=== PATIENT | male | born 1930 | race Caucasian/White ===

== ENCOUNTER 2019-05-12 15:31 | Inpatient (IN) | payer MEDICARE, OTHER ==
[2019-05-12 16:14] LABS: Bacteria/HPF None Seen HPF (None Seen); Bilirubin Negative (Negative); Blood, Urine 2+ (Negative); Clarity Clear (Clear); Glucose, Urine (Dipstick) Normal (Negative); Leukocyte Negative Leu/uL (Negative); Nitrite Negative (Negative); Protein, Urine (Dipstick) 50 mg/dL (Neg-Trace); Squamous Epithelial None Seen HPF (0-3); Urobilinogen Normal mg/dL (Less than 2); WBC/HPF 0-3 HPF (0-3)
[2019-05-12 16:23] LABS: #Lymphocytes 0.6 thou/uL (1.20-3.40); #Monocytes 0.9 thou/uL (0.11-0.59); #Neutrophils 10.6 thou/uL (1.40-6.50); %Basophils 0.2 % (0.0-1.0); %Eosinophils 0.1 % (0.0-10.0); %Lymphocytes 5.3 % (21.0-51.0); %Monocytes 7.6 % (0.0-10.0); %Neutrophils 86.9 % (42.0-75.0); Hemoglobin 15.1 g/dL (14.0-18.0); Mean Corpuscular HGB CONC 34.6 g/dL (32.0-36.0); Mean Corpuscular Hemoglobin 31.1 pg (27.0-31.0); Mean Corpuscular Volume 89.8 fL (78.0-98.0); Mean Platelet Volume 7.3 fL (7.4-10.4); Platelet Count 177 thou/uL (130-400); RBC Distribution Width 12.9 % (11.5-14.5); Red Blood Cell (RBC) Count 4.87 mill/uL (4.70-6.10); White Blood Cell (WBC) Count 12.2 thou/uL (4.8-10.8)
--- NOTE | 2019-05-12 16:35 | CT ---
Exam: Head CT without contrast HISTORY: Trauma. Pain. COMPARISON: 11/05/2013 FINDINGS: Hemorrhage: No intraparenchymal hemorrhage or extra-axial hematoma. Brain parenchyma: Cortical martin-white matter differentiation is preserved. No mass effect or midline shift. Basilar cisterns are patent.Chronic small vessel ischemic changes white matter. Age-appropriate atrophy. Ventricular system: Ventricles and sulci are patent and symmetric. Calvarium: Intact. Sinuses and mastoid air cells: Mild mucosal thickening of the paranasal sinuses. Intact mastoid air c ells IMPRESSION: No acute intracranial posttraumatic sequelae.
--- NOTE | 2019-05-12 16:42 | CT ---
CT CERVICAL SPINE NONCONTRAST: DATE: 05/12/2019 HISTORY: cervical trauma. 88-year-old male status post acute cervical trauma from fall. FINDINGS: There are no jumped or perched facets. There is no evidence of acute fracture. The vertebral body hei ghts are maintained. There is no prevertebral soft tissue swelling. There are degenerative disc changes and facet osteoarthrosis. There is an approximately 0.8 x 0.6 x 0.7 cm midline posterior oste olytic lesion at C2, involving base of odontoid process, contiguous with defect of posterior osseous cortical surface. There is soft tissue density material around the odontoid process which is probably degenerative pseudopannus, but alternatively could represent pannus if the patient has history of rheumatoid arthritis. IMPRESSION: 1) Cervical spondylosis. 2) no evidence of acute fracture or acute traumatic subluxation. 3) at C2, there is a nonspecific osteolytic focal lesion at posterior base of odontoid process. This is nonspecific. Possibilities include metastatic focus, myeloma, erosion, versus one of the various benign osteolytic entities.
[2019-05-12 16:49] LABS: ALT (SGPT) 15 U/L (8-55); AST (SGOT) 45 U/L (5-34); Albumin 3.5 g/dL (3.4-4.8); Alkaline Phosphatase 76 U/L (40-110); Anion Gap 11 mmol/L (10-20); BUN (Urea Nitrogen) 23 mg/dL (8.4-25.7); Bilirubin, Total 1.1 mg/dL (0.2-1.2); CK (CPK) 1433 U/L (30-200); Calc. Creatinine Clearance 0 mL/min (70-130); Calcium 8.7 mg/dL (7.8-10.44); Carbon Dioxide 28 mmol/L (23-31); Chloride 101 mmol/L (98-107); Estimated GFR-MDRD 68; Globulin 2.2 g/dL (2.4-3.5); Glucose 116 mg/dL (83-110); Lipase 5 U/L (8-78); Magnesium 1.8 mg/dL (1.6-2.6); Potassium 3.9 mmol/L (3.5-5.1); Protein, Total 5.7 g/dL (5.8-8.1); Sodium 136 mmol/L (136-145)
--- NOTE | 2019-05-12 16:56 | RAD ---
Chest 2 views HISTORY: Altered mental status. Syncope. FINDINGS: Cardiac silhouette and pulmonary vasculature are unremarkable. Mediastinum is midline with aortic calcification. No confluent airspace consolidation, pneumothorax, or pleural fluid. Lungs are slightly hyperinflated. IMPRESSION: Mild pulmonary hyperinflation. Atherosclerosis.
[2019-05-12 17:14] LABS: CKMB 37.7 ng/mL (0-6.6)
[2019-05-12] MEDS ORDERED: hydrALAZINE 20 MG/ML VIAL ONE (17:38)
[2019-05-12] MEDS ORDERED: Lorazepam 2 MG/ML VIAL SLOW IVP SCH (18:30)
[2019-05-12] MEDS ORDERED: Lorazepam 2 MG/ML VIAL ONE (18:35)
[2019-05-12] MEDS ORDERED: Aspirin 325 mg Enteric Coated Tablet PO SCH (19:00)
--- NOTE | 2019-05-12 19:14 | PDOC.EVN ---
Event Note - Event Note Event Note: Patient seen and examined, discussed with Terra Cui. He was found down for unknown duration time. He had some elevated CPK and modestly elevated trop. Head CT negative. Became a little agitated here and had a very small dose of ativan. Initially seemed confused. On my exam he is fairly appropriate. Gets a few things wrong, but able to tell me details about his who last month. Denies EtOH or tobacco. Heart is tachy. Lungs generally clear. EKG repeat was a little concerning for ST depression. Sent to Dr. Ruiz and discussed between he and Terra. Will give Lovenox and beta janay if he can pass a swallow test. Plan MRI, tox screen. Rule out.
[2019-05-12] MEDS ORDERED: Enoxaparin Sodium 100 MG/ML SYRINGE SC SCH (19:15)
[2019-05-12 19:23] LABS: Amphetamine Not Detected (NotDetected); Barbiturates Screen Not Detected (NotDetected); Benzodiazepine Screen Not Detected (NotDetected); Cocaine Metabolite Screen Not Detected (NotDetected); Medtox Control Line Valid? VALID (VALID); Medtox Reader # READER 4; Methadone Not Detected (NotDetected); Methamphetamine Not Detected (NotDetected); Opiate Screen Not Detected (NotDetected); Oxycodone Screen Not Detected (NotDetected); Phencyclidine (PCP) Not Detected (NotDetected); THC/Cannabinoid Screen Not Detected (NotDetected); Tricyclic Screen Not Detected (NotDetected)
[2019-05-12] MEDS ORDERED: Aspirin Chewable 81 MG TAB ONE (19:24)
[2019-05-12] MEDS ORDERED: Metoprolol Tartrate 25 MG TAB PO SCH ×2 (19:30→21:00)
[2019-05-12] MEDS ORDERED: Melatonin 3 MG TAB PO PRN (21:07)
[2019-05-12] MEDS ORDERED: Melatonin 3 MG TAB PO SCH (21:15)
[2019-05-12] MEDS ORDERED: Sodium Chloride 0.45% 1,000 ML IV SCH (21:15)
--- NOTE | 2019-05-12 21:33 | PDOC.HHP ---
Hospitalist HPI - History of Present Illness Unresponsive/AMS History of Present Illness: Patient brought in to the ED after he was found down at home unresponsive. The last time he was seen was 24-48 hours ago when he was helping his neighbor move. He lives alone. Patient continues to be altered therefore history taking is difficult. He is able to recall his address but does not answer appropriately otherwise. Also not able to follow commands. He appears agitated and wanting to get out of the stretcher. I was notified by the ED RN that patient became tachycardic. HR in 130s. He denies any chest pain. Does not appear to be in any discomfort. ED Course: He had a CT head which showed no acute intracranial changes. CT C-Spine: 1) Cervical spondylosis. 2) no evidence of acute fracture or acute traumatic subluxation. 3) at C2, there is a nonspecific osteolytic focal lesion at posterior base of odontoid process. This is nonspecific. Possibilities include metastatic focus, myeloma, erosion, versus one of the various benign osteolytic entities. WCC 12.2, Hgb 15.1, Hct 43.7, platelets 177 Trop 0.110, CKMB 37.7 CK 1433 Na+ 136, K+ 3.9, Bun 23, Creat 1.03, GFR 68. LFTs unremarkable. CXR: mild pulmonary hyperinflation. UA: 10 ketone, 50 of protein, 2+ blood, 4-6 RBC, no bacteria. Given hydralazine for elevated BP (initial 241/189) and started on IVF 150 mL/ hr. Repeat EKG done due to tachycardia. Given concern for ST depression Aspirin 325 mg given. Patient with improved mental status and able to take pill. I discussed case with Dr. Ruiz who felt the elevated trop was unlikely cardiac in nature. Advised lovenox x 1, metoprolol 50 bid with plans to see patient in AM. Echo advised as well. Hospitalist ROS - Review of Systems ROS unobtainable: due to mental status (Denies any pain. Difficult to obtain history.) Hospitalist History - Past Medical History Source: other Cardiac: reports: HTN, Hyperlipidemia - Past Surgical History Past Surgical History: reports: Appendectomy, Cataract Removal - Social History Activity level: independent ambulation - Exam General - other findings: Patient initially agitated, has calmed with ativan 0.25 mg IV given in ED. Eye - other findings: Gaze deviating upward, after ativan able to make eye contact ENT: dry oral mucosa ENT - other findings: unable to assess EOM or visual desai due to confusion Neck: supple Heart: no murmur, no gallops, no rubs Heart - other findings: tachycardia Respiratory: CTAB, no wheezes, no rales, no ronchi, normal chest expansion, no tachypnea Gastrointestinal: soft, non-distended, no guarding, no rigidity Gastrointestinal - other findings: no apparent tenderness Extremities: no cyanosis, no edema Skin: normal turgor Neurological - other findings: Appears disheveled, unable to follow commands, no slurred speech Musculoskeletal: normal tone, normal strength Psychiatric: oriented to person Hospitalist Results - Labs Result Diagrams: 05/12/19 16:09 05/12/19 16:09 Lab results: WBC 12.2 thou/uL (4.8-10.8) H 05/12/19 16:09 Hgb 15.1 g/dL (14.0-18.0) 05/12/19 16:09 Hct 43.7 % (42.0-52.0) 05/12/19 16:09 MCV 89.8 fL (78.0-98.0) 05/12/19 16:09 Plt Count 177 thou/uL (130-400) 05/12/19 16:09 Neutrophils % 86.9 % (42.0-75.0) H 05/12/19 16:09 Sodium 136 mmol/L (136-145) 05/12/19 16:09 Potassium 3.9 mmol/L (3.5-5.1) 05/12/19 16:09 Chloride 101 mmol/L (98-107) 05/12/19 16:09 Carbon Dioxide 28 mmol/L (23-31) 05/12/19 16:09 BUN 23 mg/dL (8.4-25.7) 05/12/19 16:09 Creatinine 1.03 mg/dL (0.7-1.3) 05/12/19 16:09 Glucose 116 mg/dL (83-110) H 05/12/19 16:09 Calcium 8.7 mg/dL (7.8-10.44) 05/12/19 16:09 Total Bilirubin 1.1 mg/dL (0.2-1.2) 05/12/19 16:09 AST 45 U/L (5-34) H 05/12/19 16:09 ALT 15 U/L (8-55) 05/12/19 16:09 Alkaline Phosphatase 76 U/L (40-110) 05/12/19 16:09 Ammonia 17 umol/L (18-72) L 05/12/19 19:31 Creatine Kinase 1433 U/L (30-200) H 05/12/19 16:09 CK-MB (CK-2) 37.7 ng/mL (0-6.6) H* 05/12/19 16:09 Troponin I 0.110 ng/mL (< 0.028) H 05/12/19 16:09 Serum Total Protein 5.7 g/dL (5.8-8.1) L 05/12/19 16:09 Albumin 3.5 g/dL (3.4-4.8) 05/12/19 16:09 Lipase 5 U/L (8-78) L 05/12/19 16:09 Urine Ketones 10 mg/dL (Negative) A 05/12/19 15:51 Urine Blood 2+ (Negative) A 05/12/19 15:51 Urine Nitrite Negative (Negative) 05/12/19 15:51 Ur Leukocyte Esterase Negative Lucas/uL (Negative) 05/12/19 15:51 Urine RBC 4-6 HPF (0-3) A 05/12/19 15:51 Urine WBC 0-3 HPF (0-3) 05/12/19 15:51 Ur Squamous Epith Cells None Seen HPF (0-3) 05/12/19 15:51 Urine Bacteria None Seen HPF (None Seen) 05/12/19 15:51 - Radiology Interpretation CT scan - head Status: report reviewed by me Hospitalist H&P A/P - Problem (1) AMS (altered mental status) Code(s): R41.82 - ALTERED MENTAL STATUS, UNSPECIFIED Status: Acute (2) Unresponsive episode Status: Acute (3) Rhabdomyolysis Code(s): M62.82 - RHABDOMYOLYSIS Status: Acute (4) Elevated troponin Code(s): R79.89 - OTHER SPECIFIED ABNORMAL FINDINGS OF BLOOD CHEMISTRY Status : Acute (5) Hypertension Code(s): I10 - ESSENTIAL (PRIMARY) HYPERTENSION Status: Chronic (6) Hyperlipidemia Code(s): E78.5 - HYPERLIPIDEMIA, UNSPECIFIED Status: Chronic - Plan Plan: Consult placed to Neuro and Cardiology. MRI brain ordered. UDS, ETOH, ammonia and prolactin ordered. Echo ordered as well as carotid US. No CTA done in ED given >24 hours since last seen normal, not candidate for TPA/ intervention. Continue neuro checks. Dysphagia screening at bedside. Continue to trend troponins. Cardiac monitoring. Reconcile home meds once verified. Unable to establish code status or MPOA at this time.
[2019-05-13] MEDS ORDERED: Acetaminophen 650 MG Suppository PR PRN (00:29)
[2019-05-13] MEDS ORDERED: Acetaminophen 325 MG TAB PO PRN (00:29)
[2019-05-13 01:39] LABS: CKMB 39.1 ng/mL (0-6.6)
[2019-05-13] MEDS: Sodium Chloride 0.9% 1,000 ML IV SCH ×2 (01:44→15:37)
[2019-05-13 04:54] LABS: #Monocytes 0.7 thou/uL (0.11-0.59); #Neutrophils 6.5 thou/uL (1.40-6.50); %Basophils 0.2 % (0.0-1.0); %Eosinophils 0.2 % (0.0-10.0); %Lymphocytes 11.6 % (21.0-51.0); %Monocytes 8.1 % (0.0-10.0); %Neutrophils 79.9 % (42.0-75.0); Hemoglobin 12.8 g/dL (14.0-18.0); Mean Corpuscular HGB CONC 34.1 g/dL (32.0-36.0); Mean Corpuscular Hemoglobin 31.1 pg (27.0-31.0); Mean Corpuscular Volume 91.2 fL (78.0-98.0); Mean Platelet Volume 7.3 fL (7.4-10.4); Platelet Count 142 thou/uL (130-400); RBC Distribution Width 12.9 % (11.5-14.5); Red Blood Cell (RBC) Count 4.11 mill/uL (4.70-6.10); White Blood Cell (WBC) Count 8.1 thou/uL (4.8-10.8)
[2019-05-13 05:33] LABS: Anion Gap 12 mmol/L (10-20); BUN (Urea Nitrogen) 21 mg/dL (8.4-25.7); Calc. Creatinine Clearance 57 mL/min (70-130); Calcium 7.5 mg/dL (7.8-10.44); Carbon Dioxide 21 mmol/L (23-31); Cardiac Risk 2.8 (Less than 4.5); Chloride 109 mmol/L (98-107); Cholesterol 133 mg/dl (< 200 Desired); Estimated GFR-MDRD Greater than 90; Glucose 76 mg/dL (83-110); HDL Cholesterol 48 mg/dL (>60 Neg Risk); LDL Cholesterol, Calculated 74 mg/dL; Potassium 3.3 mmol/L (3.5-5.1); Sodium 139 mmol/L (136-145); Triglycerides 57 mg/dL (Less than 150)
[2019-05-13 06:03] LABS: CKMB 29.6 ng/mL (0-6.6); Critical Call CKMB RESULT DECREASING
[2019-05-13] MEDS ORDERED: FLU VACC TS2019-20(65YR UP)/PF 180 MCG/0.5 ML SYRINGE IM ONE (09:00)
[2019-05-13] MEDS ORDERED: Prevnar 13-Val Conj/PF 0.5 ML SYRINGE IM ONE (09:00)
[2019-05-13] MEDS: Potassium Chloride 20 MEQ TAB PO SCH ×2 (10:00→15:01)
[2019-05-13] MEDS: Aspirin 81 mg Enteric Coated Tablet PO SCH (10:00)
[2019-05-13] MEDS ORDERED: Lorazepam 1 MG TAB PO PRN (10:26)
--- NOTE | 2019-05-13 10:44 | CON ---
DATE OF CONSULTATION: 05/13/2019 REASON FOR CONSULTATION: Elevated troponin. HISTORY OF PRESENT ILLNESS: Mr. is an unfortunate 88-year-old gentleman who was found down. The duration is unknown. He was not checked on for 2 days. He had an elevated CK-MB, CK in addition to minimally elevated troponin. He continues to have mental status changes. History is unobtainable. PAST MEDICAL HISTORY: Hypertension and hyperlipidemia. PAST SURGICAL HISTORY: Appendectomy, cataract removal. SOCIAL HISTORY: Unknown. REVIEW OF SYSTEMS: Unobtainable. PHYSICAL EXAMINATION: GENERAL: The patient is not following commands. He is somnolent. He is able to manage his own airway. VITAL SIGNS: Blood pressure 154/72, pulse 67, and temperature 98.4. NEUROLOGIC: The patient is alert and oriented x3 with no focal neurologic deficits. HEENT: Sclerae without icterus. Mouth has moist mucous membranes with normal pallor. NECK: No JVD. Carotid upstroke brisk. No bruits bilaterally. LUNGS: Clear to auscultation with unlabored respirations. BACK: No scoliosis or kyphosis. CARDIAC: Regular rate and rhythm with normal S1 and S2. No S3 or S4 noted. No significant rubs, murmurs, thrills, or gallops noted throughout the precordium. PMI is not displaced. There is no parasternal heave. ABDOMEN: Soft, nontender, nondistended. No peritoneal signs present. No hepatosplenomegaly. No abnormal striae. EXTREMITIES: 2+ femoral and 2+ dorsalis pedis pulses. No cyanosis, clubbing, or edema. SKIN: No gross abnormalities. PERTINENT LABORATORY DATA: Hemoglobin 12.8, hematocrit 37.4. Creatinine 0.76, CK-MB peak 39 down to 29. Troponin peak 0.2 down to 0.165. TSH 2.5. IMPRESSION: 1. Elevated troponin. 2. Elevated CK-MB. 3. Mental status changes. 4. Hypertension. RECOMMENDATIONS: Elevated troponin. It was felt to be secondary to a type 2 myocardial infarction from a recent rhabdomyolysis. His CK was elevated in addition to CK-MB. At this point, we will continue with conservative treatment. I do not feel this is a primary cardiac event. I will continue to monitor on telemetry for any dysrhythmias. We will review his echo. Job ID: [id number]
--- NOTE | 2019-05-13 12:03 | ULT ---
Carotid duplex sonogram HISTORY: CVA. Vascular disease. FINDINGS: Right: Prominent plaque. Color and spectral Doppler evaluation, peak systolic velocity of 79 cm/s, an d IC to CC ratio 0.7 suggest no hemodynamically significant stenosis within the extra cranial right ICA. Antegrade flow within the vertebral artery. Left: Scattered plaque. Color and spectral Doppler evaluation, peak systolic velocity of 112 cm/s, an d IC to CC ratio 1.1 suggest no hemodynamically significant stenosis within the extra cranial left ICA. Antegrade flow within the vertebral artery. IMPRESSION: Atherosclerosis. No sonographic evidence of significant extracranial ICA stenosis.
--- NOTE | 2019-05-13 12:11 | MRI ---
MRI brain noncontrast HISTORY: TIA. FINDINGS: There is no evidence of acute intracranial hemorrhage or infarct. Diffuse cortical atrophy and chronic ischemic small vessel disease are again demonstrated. There is no mass effect or shift of midline structures. Mild mucosal thickening within the right maxillary sinus and ethmoid air cells . IMPRESSION: Chronic ischemic small vessel disease. No acute intracranial abnormalities are demonstrat ed.
--- NOTE | 2019-05-13 19:42 | CON ---
DATE OF TELEMEDICINE CONSULTATION: 05/13/2019 CHIEF COMPLAINT: Rhabdomyolysis and altered mental status. HISTORY OF PRESENT ILLNESS: The patient is an 88-year-old man who has been admitted with a diagnosis of rhabdomyolysis per the chart and he was found down and duration of his passing mouth was unknown. He was not checked on for 2 days and on admission, he had elevated CK-MB and elevated CK and he is confused since admission and a formal diagnosis of rhabdomyolysis was made. The history mostly obtained from the chart. The patient lives alone. He continues to have altered mental status. He also had an episode of tachycardia in the hospital. PREVIOUS MEDICAL HISTORY: Per chart, he has hypertension and hyperlipidemia. SURGICAL HISTORY: Appendectomy, cataract removal. SOCIAL HISTORY: He lives by himself. Unknown if he smokes or drinks. REVIEW OF SYSTEMS: Difficult to obtain due to mental status, but he is able to give more information today. MEDICATIONS: Noted per chart. IMAGING: Workup so far, his brain MRI was completed and MRI of the brain did not show any acute intracranial abnormalities. He does have chronic vascular changes. LABORATORY WORKUP: White count 8.1, hemoglobin 12.8, hematocrit 37.4, platelet count 142. Chemistry; sodium 139, potassium 3.3, chloride 109, bicarb 21, BUN 21, creatinine 0.76, glucose 76. Cholesterol and lipid profile within normal limits. CK-MB is 29.6. Ammonia 17 and his CPK level was 1433 at admission and his TSH is 2.5. Prolactin 15.84. PHYSICAL EXAMINATION: VITAL SIGNS: Temperature 97.8, pulse 73, respiratory rate 18, O2 sats 97%, and blood pressure 161/103. GENERAL APPEARANCE: Well-built, well-nourished man. CHEST: Clear vesicular breathing. CARDIOVASCULAR: S1 and S2 heard. No murmurs. ABDOMEN: Soft. NEUROLOGIC: Higher intellectual functions. He was oriented to place. He stated he lives in [place], [place], and he is at [facility] and he was not oriented to time. He stated it was 11 October 2001. He was slightly confused even during our visit. Cranial nerves; positive findings. Pupils 3 mm, reactive to light. Tongue is deviating to the right. He does have facial droop on the right side. Normal sensation of face to touch bilaterally and normal elevation of palate. Normal hearing bilaterally. Motor; bulk normal, tone normal. Strength 4/5 throughout, slightly decreased effort. He did have increased tone and tremor. He does have bruising throughout the body. Sensory exam, normal to touch bilaterally. Cerebellar, normal [id number] and [id number]. IMPRESSION: The patient is an 88-year-old man who stated he had a dizzy spell and he went down for an unspecified period of time. They think it is two days per the ER visit notes and also per the chart. His muscle enzymes are elevated and on exam, he has some tremulousness without increase in tone. He had global decrease in strength. When asked if he drinks alcohol, he was not sure and the patient might be in delirium tremens at this time, and on admission there is no blood alcohol level that I could find. He might have altered mental status due to multiple metabolic issues including mild rhabdomyolysis as suspected plus delirium tremens with alcohol withdrawal. Further history from any available members or friend might be helpful. RECOMMENDATIONS: Please treat him for DTs. If medication has not been started , he might be a candidate for Librium and the patient needs to be monitored carefully for any further issues. I do not think this is his primary neurological issue such as stroke or seizure. I will follow up as needed. Please call me if you have further questions. Job ID: [id number] MTDD
[2019-05-13] MEDS: Metoprolol Tartrate 25 MG TAB PO SCH (20:37)
--- NOTE | 2019-05-13 23:20 | PDOC.HOSPP ---
- Subjective Encounter Date: 05/13/19 Encounter Time: 09:45 Subjective: overnight continue to be agitated and pull on lines . This morning, lying comfortably in bed pending brain MRI. Requests to be off restraints. Explained that we need to protect him and staff until agitation episodes cease. - Objective Vital Signs & Weight: Vital Signs (12 hours) Temp Pulse Pulse Pulse Resp BP BP 05/13/19 21:52 99.1 F 82 18 05/13/19 20:00 05/13/19 18:44 05/13/19 15:12 97.8 F 73 18 05/13/19 14:25 73 74 181/84 H 161/103 H 05/13/19 11:39 98.2 F 80 18 BP Pulse Ox 05/13/19 21:52 162/77 H 97 05/13/19 20:00 97 05/13/19 18:44 157/73 H 05/13/19 15:12 161/103 H 97 05/13/19 14:25 05/13/19 11:39 158/77 H 99 Weight Weight 127 lb I&O: 05/12/19 05/13/19 05/14/19 06:59 06:59 06:59 Intake Total 900 1250 Output Total 75 Balance 900 1175 Result Diagrams: 05/13/19 04:06 05/13/19 04:06 Hospitalist ROS - Review of Systems Constitutional: denies: fever, chills, sweats, weakness, malaise, other Respiratory: denies: cough, dry, shortness of breath, hemoptysis, SOB with excertion, pleuritic pain, sputum, wheezing, other Cardiovascular: denies: chest pain, palpitations, orthopnea, paroxysmal noc. dyspnea, edema, light headedness, other Gastrointestinal: denies: nausea, vomiting, abdominal pain, diarrhea, constipation, melena, hematochezia, other Genitourinary: denies: dysuria, frequency, incontinence, hematuria, retention, other Neurological: denies: weakness, change in speech - Medication Medications: Active Medications Generic Name Dose Route Start Last Admin Trade Name Freq PRN Reason Stop Dose Admin Acetaminophen 650 mg 05/13/19 00:29 05/13/19 20:37 Tylenol PO 650 mg Q4H PRN Administration Headache/Fever/Mild Pain (1-3) Aspirin 81 mg 05/13/19 09:00 05/13/19 10:00 Ecotrin PO 81 mg DAILY DILLON Administration Sodium Chloride 1,000 mls @ 65 mls/hr 05/13/19 00:30 05/13/19 15:37 Normal Saline 0.9% IV 1,000 mls .[id number] DILLON Administration Lorazepam 0.5 mg 05/13/19 10:26 05/13/19 11:04 Ativan PO 0.5 mg Q15M PRN Administration Anxiety/Agitation Metoprolol Tartrate 25 mg 05/13/19 21:00 05/13/19 20:37 Lopressor PO 25 mg BID DILLON Administration Sodium Chloride 10 ml 05/13/19 00:29 05/13/19 20:38 Flush - Normal Saline IVF 10 ml Q12HR PRN Administration Saline Flush - Exam General Appearance: NAD, awake alert General - other findings: disheveled ENT: normocephalic atraumatic, moist mucosa ENT - other findings: mildly diaphoretic Heart: RRR, no murmur, no gallops, no rubs Respiratory: CTAB, no wheezes, no rales, no ronchi Gastrointestinal: soft, non-tender, non-distended, normal bowel sounds Extremities: no edema Extremities - other findings: hand tremor when stretching hands Musculoskeletal: normal tone, normal strength Psychiatric: normal affect, normal behavior, A&O x 3 Hosp A/P - Plan #alcohol withdrawal -considering found down, tachycardic, hypertensive, agitated, diaphoretic, confused, tremors during short inpatient stay; and that stroke workup negative, will start on librium PRN CIWA > 7 -can repeat librium for continued agitation (up to 300mg / 24h) or use ativan for breakthrough symptoms as necessary #Stroke/TIA -pending neurology evaluation #troponinemia -per cardiology, likely demand ischemia -continue current management
[2019-05-14] MEDS ORDERED: chlordiazePOXIDE HCl 25 MG CAP PO PRN ×3 (00:32→20:38)
[2019-05-14] MEDS ORDERED: Labetalol HCl 100 MG/20 ML VIAL ONE (04:53)
[2019-05-14] MEDS ORDERED: Labetalol HCl 100 MG/20 ML VIAL SLOW IVP SCH (05:00)
[2019-05-14 05:18] LABS: Anion Gap 13 mmol/L (10-20); BUN (Urea Nitrogen) 21 mg/dL (8.4-25.7); Calc. Creatinine Clearance 53 mL/min (70-130); Calcium 8.7 mg/dL (7.8-10.44); Carbon Dioxide 20 mmol/L (23-31); Chloride 108 mmol/L (98-107); Estimated GFR-MDRD 87; Glucose 64 mg/dL (83-110); Potassium 4.5 mmol/L (3.5-5.1); Sodium 136 mmol/L (136-145)
[2019-05-14] MEDS: Sodium Chloride 0.9% 1,000 ML IV SCH ×3 (09:26→23:10)
[2019-05-14] MEDS: Aspirin 81 mg Enteric Coated Tablet PO SCH (09:28)
[2019-05-14] MEDS: Metoprolol Tartrate 25 MG TAB PO SCH ×2 (09:28→23:10)
[2019-05-14] MEDS ORDERED: Lisinopril/Hydrochlorothiazide 20 mg/12.5 mg Tablet PO SCH (10:00)
[2019-05-14] MEDS ORDERED: Lorazepam 1 MG TAB PO PRN ×2 (10:18→20:38)
[2019-05-14] MEDS ORDERED: chlordiazePOXIDE HCl 25 MG CAP PO SCH ×2 (11:00→15:00)
--- NOTE | 2019-05-14 14:10 | PDOC.CPN ---
- Subjective Date: 05/14/19 Time: 14:05 - Review of Systems ROS unobtainable: due to mental status - Objective Allergies/Adverse Reactions: Allergies Allergy/AdvReac Type Severity Reaction Status Date / Time No Known Allergies Allergy Unverified 05/12/19 18:39 Visit Medications: Current Medications Acetaminophen (Tylenol) 650 mg PO Q4H PRN PRN Reason: Headache/Fever/Mild Pain (1-3) Last Admin: 05/13/19 20:37 Dose: 650 mg Acetaminophen (Tylenol) 650 mg NE Q4H PRN PRN Reason: Headache/Fever/Mild Pain (1-3) Aspirin (Ecotrin) 81 mg PO DAILY ON LICENSE OF [facility] Last Admin: 05/14/19 09:28 Dose: 81 mg Chlordiazepoxide HCl (Librium) 50 mg PO TID DILLON Folic Acid (Folvite) 1 mg PO DAILY ON LICENSE OF [facility] Lisinopril/HCTZ (Prinizide 20-12.5) 1 tab PO DAILY ON LICENSE OF [facility] Sodium Chloride (Normal Saline 0.9%) 1,000 mls @ 100 mls/hr IV .Q10H DILLON Last Admin: 05/14/19 10:46 Dose: 1,000 mls Thiamine HCl 100 mg/ Sodium (Chloride) 51 mls @ 100 mls/hr IVPB Q24HR ON LICENSE OF [facility] Last Admin: 05/14/19 11:03 Dose: 51 mls Lorazepam (Ativan) 2 mg PO Q4H PRN PRN Reason: Alcohol Withdrawal Last Admin: 05/14/19 12:07 Dose: 2 mg Melatonin (Melatonin) 3 mg PO HSPRN PRN PRN Reason: Insomnia Metoprolol Tartrate (Lopressor) 25 mg PO BID DILLON Last Admin: 05/14/19 09:28 Dose: 25 mg Sodium Chloride (Flush - Normal Saline) 10 ml IVF Q12HR PRN PRN Reason: Saline Flush Last Admin: 05/13/19 20:38 Dose: 10 ml Sodium Chloride (Flush - Normal Saline) 10 ml IVF PRN PRN PRN Reason: Saline Flush Vital Signs & Weight: Vital Signs Temp Pulse Resp BP BP BP Pulse Ox 05/14/19 12:06 98.2 F 84 18 172/80 H 96 05/14/19 11:00 80 197/95 H 05/14/19 09:22 98.6 F 89 18 176/86 H 97 0315/20 07:47 97 05/14/19 06:10 170/82 H 05/14/19 05:36 78 05/14/19 05:22 97.7 F 78 13 206/96 H 97 05/14/19 04:55 86 206/96 H Weight 130 lb 3.2 oz - Physical Exam General: no apparent distress HEENT: mucus membranes moist Cardiac: regular rate Lungs: normal breath sounds Abdomen: soft, non-tender - Labs Result Diagrams: 05/13/19 04:06 05/14/19 03:59 Troponin/CKMB CK-MB (CK-2) 29.6 ng/mL (0-6.6) H* 05/13/19 04:06 Troponin I 0.165 ng/mL (< 0.028) H 05/13/19 04:06 - Assessment/Plan Assessment/Plan: 1. Rhabdo 2. Elevated trop 3. HTN Add Norvasc. ? EVR at discharge since unknown reason for fall. Unsure if patient would be compliant wearing.
--- NOTE | 2019-05-14 20:22 | PDOC.HOSPP ---
- Subjective Encounter Date: 05/14/19 Encounter Time: 09:00 Subjective: overnight continues to be agitated. This morning, hallucinating and confused. Could not elicit review of systems due to confusion. - Objective Vital Signs & Weight: Vital Signs (12 hours) Temp Pulse Resp BP BP Pulse Ox 05/14/19 15:21 98.4 F 65 18 123/61 97 05/14/19 12:06 98.2 F 84 18 172/80 H 96 05/14/19 11:00 80 197/95 H 05/14/19 09:22 98.6 F 89 18 176/86 H 97 Weight Weight 130 lb 3.2 oz I&O: 05/13/19 05/14/19 05/15/19 06:59 06:59 06:59 Intake Total 900 2180 1425 Output Total 325 150 Balance 900 1855 1275 Result Diagrams: 05/13/19 04:06 05/14/19 03:59 Hospitalist ROS - Review of Systems ROS unobtainable: due to mental status - Medication Medications: Active Medications Generic Name Dose Route Start Last Admin Trade Name Freq PRN Reason Stop Dose Admin Acetaminophen 650 mg 05/13/19 00:29 05/13/19 20:37 Tylenol PO 650 mg Q4H PRN Administration Headache/Fever/Mild Pain (1-3) Aspirin 81 mg 05/13/19 09:00 05/14/19 09:28 Ecotrin PO 81 mg DAILY DILLON Administration Chlordiazepoxide HCl 50 mg 05/14/19 15:00 05/14/19 16:28 Librium PO Not Given TID DILLON Sodium Chloride 1,000 mls @ 100 mls/hr 05/14/19 10:15 05/14/19 10:46 Normal Saline 0.9% IV 1,000 mls .Q10H DILLON Administration Thiamine HCl 100 mg/ Sodium 51 mls @ 100 mls/hr 05/14/19 12:00 05/14/19 11:03 Chloride IVPB 51 mls Q24HR DILLON Administration Lorazepam 2 mg 05/14/19 10:18 05/14/19 12:07 Ativan PO 2 mg Q4H PRN Administration Alcohol Withdrawal Metoprolol Tartrate 25 mg 05/13/19 21:00 05/14/19 09:28 Lopressor PO 25 mg BID DILLON Administration Sodium Chloride 10 ml 05/13/19 00:29 03/14/20 20:38 Flush - Normal Saline IVF 10 ml Q12HR PRN Administration Saline Flush - Exam General Appearance: awake alert General - other findings: actively hallucinating Eye: PERRL ENT: normocephalic atraumatic, moist mucosa Neck: no JVD Heart: RRR, no murmur, no gallops, no rubs Respiratory: CTAB, no wheezes, no rales, no ronchi Gastrointestinal: soft, non-tender, non-distended, normal bowel sounds Extremities: no edema Psychiatric: negative: oriented to person, oriented to place, oriented to time Psychiatric - other findings: agitated, confused, hallucinating Hosp A/P - Plan #delirium tremens -increased librium and changed to scheduled; added ativan PRN for breakthrough -may need escalation of care if no improvement #Stroke/TIA -per neurology, presentation more consistent with alcohol withdrawal #troponinemia -per cardiology, likely demand ischemia; add norvasc Full code DVT PPx: SCDs GI PPx: not indicated
[2019-05-14] MEDS ORDERED: hydrALAZINE 20 MG/ML VIAL SLOW IVP PRN (22:20)
[2019-05-15 05:12] LABS: Anion Gap 12 mmol/L (10-20); BUN (Urea Nitrogen) 15 mg/dL (8.4-25.7); CK (CPK) 463 U/L (30-200); Calc. Creatinine Clearance 55 mL/min (70-130); Calcium 8.1 mg/dL (7.8-10.44); Carbon Dioxide 19 mmol/L (23-31); Chloride 107 mmol/L (98-107); Estimated GFR-MDRD Greater than 90; Glucose 67 mg/dL (83-110); Magnesium 1.7 mg/dL (1.6-2.6); Phosphorus 2.4 mg/dL (2.3-4.7); Potassium 3.8 mmol/L (3.5-5.1); Sodium 134 mmol/L (136-145)
[2019-05-15] MEDS: Sodium Chloride 0.9% 1,000 ML IV SCH ×2 (07:31→08:31)
[2019-05-15] MEDS: Amlodipine 5 MG TAB PO SCH (08:32)
[2019-05-15] MEDS: Folic Acid 1 MG TAB PO SCH (08:32)
[2019-05-15] MEDS: Metoprolol Tartrate 25 MG TAB PO SCH ×2 (08:32→21:33)
[2019-05-15] MEDS: Lisinopril/Hydrochlorothiazide 20 mg/12.5 mg Tablet PO SCH (08:32)
[2019-05-15] MEDS: Aspirin 81 mg Enteric Coated Tablet PO SCH (08:32)
[2019-05-15] MEDS ORDERED: Dextrose 5 % And 0.9 % NaCl 1,000 ML IV SCH (13:45)
--- NOTE | 2019-05-15 14:05 | PRG ---
DATE OF SERVICE: 05/15/2019 SUBJECTIVE: Mr. is more awake, but still confused. No current complaints. OBJECTIVE: VITAL SIGNS: Blood pressure 154/76, pulse 61, temperature 97.7. LUNGS: Clear to auscultation. HEART: Regular rate and rhythm with 2/6 systolic ejection murmur. ABDOMEN: Soft, nontender, nondistended. EXTREMITIES: No edema. PERTINENT LABORATORY DATA: Hemoglobin 12.8, creatinine 0.8. IMPRESSION: 1. Rhabdomyolysis. 2. Mild aortic stenosis. 3. Mental status changes. RECOMMENDATIONS: I had the aerospace technician assess gradients noted to the aortic valve. The aortic valve appeared severe and narrowing on initial echo, but gradients did not confirm severe . After a 2nd echo to assess the gradients, it appeared the valve was more consistent with mild aortic stenosis and not severe . It is unlikely Mr. 's recently was secondary to aortic stenosis. His elevated troponin secondary to rhabdomyolysis appears to be improving. Job ID: [id number]
--- NOTE | 2019-05-15 19:12 | PDOC.HOSPP ---
- Subjective Encounter Date: 05/15/19 Encounter Time: 15:00 Subjective: overnight, calmer despite nonfrequent use of benzodiazepine. This afternoon, calm, sister at bedside, oriented to self and location, not to time. Sister had difficult time to believe he was drinking alcohol. Has no complaints and denies hallucinations. Per sister at bedside, had hand tremors at baseline though not as significant as now. - Objective Vital Signs & Weight: Vital Signs (12 hours) Temp Pulse Pulse Pulse Resp BP BP 05/15/19 15:50 97.6 F 81 17 05/15/19 15:19 73 155/72 H 05/15/19 12:39 05/15/19 12:00 72 73 163/77 H 154/73 H 05/15/19 11:39 97.7 F 61 13 05/15/19 09:07 05/15/19 08:30 05/15/19 08:22 98.0 F 70 12 BP Pulse Ox 05/15/19 15:50 147/68 H 98 05/15/19 15:19 05/15/19 12:39 154/76 H 05/15/19 12:00 05/15/19 11:39 186/91 H 92 L 05/15/19 09:07 176/81 H 05/15/19 08:30 100 05/15/19 08:22 183/94 H 100 Weight Weight 130 lb 3.2 oz I&O: 05/14/19 05/15/19 05/16/19 06:59 06:59 06:59 Intake Total 2180 1425 1437 Output Total 325 150 700 Balance 1855 1275 737 Result Diagrams: 05/13/19 04:06 05/15/19 04:20 Hospitalist ROS - Review of Systems Constitutional: denies: fever, chills, sweats, weakness, malaise, other Respiratory: denies: cough, dry, shortness of breath, hemoptysis, SOB with excertion, pleuritic pain, sputum, wheezing, other Cardiovascular: denies: chest pain, palpitations, orthopnea, paroxysmal noc. dyspnea, edema, light headedness, other Gastrointestinal: denies: nausea, vomiting, abdominal pain, diarrhea, constipation, melena, hematochezia, other Genitourinary: denies: dysuria, frequency, incontinence, hematuria, retention, other - Medication Medications: Active Medications Generic Name Dose Route Start Last Admin Trade Name Toan PRN Reason Stop Dose Admin Acetaminophen 650 mg 05/13/19 00:29 05/13/19 20:37 Tylenol PO 650 mg Q4H PRN Administration Headache/Fever/Mild Pain (1-3) Amlodipine Besylate 5 mg 05/15/19 09:00 05/15/19 08:32 Norvasc PO 5 mg DAILY DILLON Administration Aspirin 81 mg 05/13/19 09:00 05/15/19 08:32 Ecotrin PO 81 mg DAILY DILLON Administration Folic Acid 1 mg 05/15/19 09:00 05/15/19 08:32 Folvite PO 1 mg DAILY DILLON Administration Lisinopril/HCTZ 1 tab 05/15/19 09:00 05/15/19 08:32 Prinizide 20-12.5 PO 1 tab DAILY DILLON Administration Hydralazine HCl 10 mg 05/14/19 22:20 05/15/19 11:48 Apresoline SLOW IVP 10 mg Q4H PRN Administration SBP > 180 and HR < 70 Metoprolol Tartrate 25 mg 05/13/19 21:00 05/15/19 08:32 Lopressor PO 25 mg BID DILLON Administration Sodium Chloride 10 ml 05/13/19 00:29 05/13/19 20:38 Flush - Normal Saline IVF 10 ml Q12HR PRN Administration Saline Flush - Exam General Appearance: NAD, awake alert Eye: PERRL, anicteric sclera Neck: no JVD Heart: RRR, no murmur, no gallops, no rubs Respiratory: CTAB, no wheezes, no rales, no ronchi Gastrointestinal: soft, non-tender, non-distended, normal bowel sounds Extremities: no edema Musculoskeletal: normal tone, normal strength Musculoskeletal - other findings: limited exam since in soft restraints Psychiatric: normal affect, normal behavior, oriented to person, oriented to place. negative: oriented to time Hosp A/P - Plan #delirium tremens (improving) -this afternoon, ASE < 8 despite last librium dose 05/13 around noon -remove IV access so that doesn't pull -remove soft restraints -if needed, administer librium 25mg PO for agitation/withdrawal -transfer to medical floor #Stroke/TIA -per neurology, presentation more consistent with alcohol withdrawal #troponinemia #aortic stenosis -per cardiology, likely demand ischemia;Echo more consistent with mild aortic stenosis Full code DVT PPx: SCDs GI PPx: not indicated
[2019-05-15] MEDS ORDERED: chlordiazePOXIDE HCl 25 MG CAP PO PRN (19:21)
--- NOTE | 2019-05-16 05:34 | PDOC.HOSPP ---
- Subjective Encounter Date: 05/16/19 Encounter Time: 10:00 Subjective: overnight, remains calm despite removing restraints and taking no additional benzodiazepines. ASE < 8. This morning, laying comfortably in bed and has no complaints. Pending placement rehab vs. SNU - Objective Vital Signs & Weight: Vital Signs (12 hours) Temp Pulse Resp BP BP BP Pulse Ox 05/16/19 04:00 97.4 F L 74 18 130/75 98 05/15/19 23:22 98.1 F 66 20 160/80 H 160/80 H 97 05/15/19 19:50 98.0 F 78 20 132/63 132/63 100 Weight Weight 130 lb 3.2 oz I&O: 05/14/19 05/15/19 05/16/19 06:59 06:59 06:59 Intake Total 2180 1425 1437 Output Total 323 868 3237 Balance 1855 1275 137 Result Diagrams: 05/13/19 04:06 05/15/19 04:20 Hospitalist ROS - Review of Systems Constitutional: denies: fever, chills, sweats, weakness, malaise, other Respiratory: denies: cough, dry, shortness of breath, hemoptysis, SOB with excertion, pleuritic pain, sputum, wheezing, other Cardiovascular: denies: chest pain, palpitations, orthopnea, paroxysmal noc. dyspnea, edema, light headedness, other Gastrointestinal: denies: nausea, vomiting, abdominal pain, diarrhea, constipation, melena, hematochezia, other Genitourinary: denies: dysuria, frequency, incontinence, hematuria, retention, other - Medication Medications: Active Medications Generic Name Dose Route Start Last Admin Trade Name Freq PRN Reason Stop Dose Admin Acetaminophen 650 mg 05/13/19 00:29 05/13/19 20:37 Tylenol PO 650 mg Q4H PRN Administration Headache/Fever/Mild Pain (1-3) Amlodipine Besylate 5 mg 05/15/19 09:00 05/15/19 08:32 Norvasc PO 5 mg DAILY DILLON Administration Aspirin 81 mg 05/13/19 09:00 05/15/19 08:32 Ecotrin PO 81 mg DAILY DILLON Administration Folic Acid 1 mg 05/15/19 09:00 05/15/19 08:32 Folvite PO 1 mg DAILY DILLON Administration Lisinopril/HCTZ 1 tab 05/15/19 09:00 05/15/19 08:32 Prinizide 20-12.5 PO 1 tab DAILY DILLON Administration Hydralazine HCl 10 mg 05/14/19 22:20 05/15/19 11:48 Apresoline SLOW IVP 10 mg Q4H PRN Administration SBP > 180 and HR < 70 Metoprolol Tartrate 25 mg 05/13/19 21:00 05/15/19 21:33 Lopressor PO 25 mg BID DILLON Administration Sodium Chloride 10 ml 05/13/19 00:29 05/13/19 20:38 Flush - Normal Saline IVF 10 ml Q12HR PRN Administration Saline Flush - Exam General Appearance: NAD, awake alert Heart: RRR, no murmur, no gallops, no rubs, normal peripheral pulses Respiratory: CTAB, no wheezes, no rales, no ronchi, normal chest expansion, no tachypnea, normal percussion Gastrointestinal: soft, non-tender, non-distended, normal bowel sounds, no palpable masses, no hepatomegaly, no splenomegaly, no bruit Skin - other findings: multiple small scabs and ecchymoses Psychiatric: normal affect, normal behavior, A&O x 3 Hosp A/P - Plan #delirium tremens (resolved) -ASE < 8 with no additional benzo intake -stop librium, ativan -pending placement SNU vs rehab #Stroke/TIA -per neurology, presentation more consistent with alcohol withdrawal #troponinemia #aortic stenosis -per cardiology, likely demand ischemia;Echo more consistent with mild aortic stenosis Full code DVT PPx: SCDs GI PPx: not indicated
[2019-05-16 06:00] LABS: #Eosinphils 0.1 thou/uL (0.0-0.7); #Lymphocytes 1.2 thou/uL (1.20-3.40); #Monocytes 0.5 thou/uL (0.11-0.59); %Basophils 0.1 % (0.0-1.0); %Lymphocytes 20.6 % (21.0-51.0); %Monocytes 8.8 % (0.0-10.0); %Neutrophils 68.5 % (42.0-75.0); Hemoglobin 13.2 g/dL (14.0-18.0); Mean Corpuscular HGB CONC 33.8 g/dL (32.0-36.0); Mean Corpuscular Hemoglobin 30.6 pg (27.0-31.0); Mean Corpuscular Volume 90.7 fL (78.0-98.0); Mean Platelet Volume 8.5 fL (7.4-10.4); Platelet Count 126 thou/uL (130-400); Red Blood Cell (RBC) Count 4.33 mill/uL (4.70-6.10); White Blood Cell (WBC) Count 5.9 thou/uL (4.8-10.8)
[2019-05-16] MEDS: Amlodipine 5 MG TAB PO SCH (10:22)
[2019-05-16] MEDS: Thiamine 100 MG TAB PO SCH (10:23)
[2019-05-16] MEDS: Metoprolol Tartrate 25 MG TAB PO SCH ×2 (10:23→20:32)
[2019-05-16] MEDS: Aspirin 81 mg Enteric Coated Tablet PO SCH (10:23)
[2019-05-16] MEDS: Lisinopril/Hydrochlorothiazide 20 mg/12.5 mg Tablet PO SCH (10:23)
[2019-05-16] MEDS: Folic Acid 1 MG TAB PO SCH (10:23)
[2019-05-16 10:52] VITALS: BMI 20.9
[2019-05-17 06:44] LABS: Anion Gap 9 mmol/L (10-20); BUN (Urea Nitrogen) 11 mg/dL (8.4-25.7); Calc. Creatinine Clearance 52 mL/min (70-130); Calcium 8.5 mg/dL (7.8-10.44); Carbon Dioxide 28 mmol/L (23-31); Chloride 101 mmol/L (98-107); Estimated GFR-MDRD 85; Glucose 86 mg/dL (83-110); Magnesium 1.7 mg/dL (1.6-2.6); Potassium 3.6 mmol/L (3.5-5.1); Sodium 134 mmol/L (136-145)
[2019-05-17 07:47] VITALS: TEMP 97.6
[2019-05-17] MEDS ORDERED: Lisinopril 20 MG TAB PO SCH (09:00)
[2019-05-17] MEDS: Amlodipine 5 MG TAB PO SCH (09:50)
[2019-05-17] MEDS: Thiamine 100 MG TAB PO SCH (09:50)
[2019-05-17] MEDS: Metoprolol Tartrate 25 MG TAB PO SCH (09:50)
[2019-05-17] MEDS: Aspirin 81 mg Enteric Coated Tablet PO SCH (09:50)
[2019-05-17] MEDS: Folic Acid 1 MG TAB PO SCH (09:51)
[2019-05-17 12:55] VITALS: BP 132/70
[2019-05-17] MEDS ORDERED: Sodium Chloride 0.9% 1,000 ML IV SCH (13:45)
--- NOTE | 2019-05-18 13:18 | DIS ---
DATE OF ADMISSION: 05/12/2019 DATE OF DISCHARGE: 05/17/2019 HOSPITAL COURSE: is an 88-year-old male with a medical history of hypertension and hyperlipidemia, was found down after not being checked on for 2 days. He was found to have delirium tremens involving elevated troponin. Cardiology was consulted and agreed that the troponinemia was most likely type 2 NSTEMI due to alcohol withdrawal. The patient was treated with Librium and Ativan for several days prior to having ASE score lower than 8. He exhibited confusion, hyperdynamic vital signs, visual and auditory hallucinations, tremors that failed to resolve despite initially attempting Ativan and moderate doses of Librium. The day prior to discharge, the patient's daughter came to the hospital and endorsed the patient's loss of his in December of 2018; however, she did not believe that the patient was drinking. The patient was discharged to a rehab facility after the daughter was contacted and was involved in the picking of the facility. He was hemodynamically stable. DISCHARGE PHYSICAL EXAMINATION: GENERAL: On exam, he was in no apparent distress. Alert and oriented x3. HEENT: He is normocephalic and atraumatic. HEART: Regular rate and rhythm. No murmurs, no gallops, no JVD. No edema. LUNGS: Clear to auscultation bilaterally. No wheezing, rales, or rhonchi. ABDOMEN: Nontender, nondistended. Normal bowel sounds. SKIN: The patient appeared disheveled and unkempt. EXTREMITIES: Strength 5/5 throughout upper and lower extremities. NEUROLOGIC: Cranial nerves intact. No speech deficit or facial asymmetry. No focal weakness. PSYCHIATRIC: Flat affect. Normal behavior. Alert and oriented x3. DISCHARGE MEDICATIONS: The patient was discharged on the following medications: Amlodipine and lisinopril for hypertension, aspirin for TIA, low-dose chlordiazepoxide for alcohol withdrawals, folic acid and thiamine for supplemental nutrition. The medications that were discontinued were benazepril and hydrochlorothiazide. Job ID: [id number] [facility]
== END 2019-05-17 15:11 | DRG 896 ==
LOC: ERS 15:31 → 2NO 17:55 → T4-B 05-15 23:29
PROVIDERS: ADMIT Internal Medicine; ATTEND Internal Medicine
DX: F10.239 Alcohol dependence with withdrawal, unspecified (principal); I21.A1 Myocardial infarction type 2; M62.82 Rhabdomyolysis; W18.30XA Fall on same level, unspecified, initial encounter; E78.5 Hyperlipidemia, unspecified; I10 Essential (primary) hypertension; I35.0 Nonrheumatic aortic (valve) stenosis; Z98.49 Cataract extraction status, unspecified eye; Z90.49 Acquired absence of other specified parts of digestive tract; Y92.091 Bathroom in other non-institutional residence as the place of occurrence of the external cause
CPT/HCPCS: 36415; 36416; 70450; 70551; 71046; 72125; 80048; 80053; 80061; 80306; 81003; 81015; 82140; 82550; 82553; 83690; 83735; 84100; 84146; 84443; 84484; 85025; 87086; 93005; 93306; 93880; 94760; 96361; 96374; 96375; J0360; J1650; J2060; J3411; L0120